=== PATIENT | female | born 1995 | race Caucasian/White ===

== ENCOUNTER 2018-11-24 14:25 | Inpatient (IN) ==
[2018-11-24 15:06] LABS: Apearance,Urine CLEAR (Clear); Bilirubin,Urine Negative (Negative); Blood, Urine Negative (Negative); Glucose,Urine (UA) Negative (Negative); Ketones,Urine Negative (Negative); Nitrite,Urine Negative (Negative); Protein,Urine Negative; RBC,Urine 2 /HPF (0-4); Squamous Epithelial Cell,Urine Occasional /HPF (0-10); Urine Color Straw (Yellow); Urine Specific Gravity 1.004 (1.001-1.035); Urine Urobilinogen < 2.0 EU/DL (0.2-1.0); WBC,Urine <1 /HPF (0-6)
[2018-11-24] MEDS: LACTATED RINGERS 1,000 ML IV SCH (15:50)
[2018-11-24] MEDS ORDERED: BUTORPHANOL 1 MG/ML VIAL IV PRN (17:27)
[2018-11-24 17:55] LABS: Basophils # 0.1 10*3/uL (0.0-0.2); Basophils % 0.4 % (0.0-0.8); Eosinophils % 0.2 % (0.00-10.9); Hematocrit 30.9 VOL% (35.7-47.0); Hemoglobin 9.2 GM/DL (12.0-16.0); Immature Granulocytes % 5.1 %; Immature Granulocytes Absolute 0.61 #; Lymphocytes # 2.2 10*3/uL (1.4-4.0); Lymphocytes % 18.2 % (21.3-54.2); Mean Corpuscular HGB Conc 29.8 GM/DL (32-36); Mean Corpuscular Volume 72.2 FL (87-102); Mean Platelet Volume 10.8 FL (9.6-12.0); Monocytes % 5.9 % (1.7-12.7); NRBC # 0.05 10*3/uL; Neutrophils % 70.2 % (38.7-73.9); Platelet Count 159 T/CUMM (130-400); Red Blood Count 4.28 MC/CUMM (3.8-5.5); Red Cell Distribution Width 16.3 % (9.3-17.3); White Blood Count 12.1 T/CUMM (4-12)
[2018-11-24 18:31] LABS: Band Neutrophils 1 % (0-10); Eosinophils 1 % (0-10); Hypochromasia Slight; Lymphocytes 15 % (20-55); Microcytosis 1+; Polychromasia 1+; Segmented Neutrophils 80 % (50-85); Total Cells Counted 100
[2018-11-24 18:32] LABS: Platelet Estimate Adequate
[2018-11-24] MEDS ORDERED: INFLUENZA VIRUS VACCINE 0.5 ML SYRINGE IM ONE (18:44)
[2018-11-24] MEDS: MEPERIDINE 25 MG/1 ML VIAL IV PRN (19:14)
[2018-11-24] MEDS: ONDANSETRON 4 MG/2 ML VIAL IV PRN (19:15)
[2018-11-25] MEDS: ONDANSETRON 4 MG/2 ML VIAL IV PRN ×2 (00:13→06:05)
[2018-11-25] MEDS: MEPERIDINE 25 MG/1 ML VIAL IV PRN ×2 (00:13→06:05)
[2018-11-25] MEDS: LACTATED RINGERS 1,000 ML IV SCH (01:58)
[2018-11-25] MEDS: OXYTOCIN/LR 20 UNIT/1,000 ML BAG IV SCH ×2 (01:58→14:46)
[2018-11-25] MEDS ORDERED: LIDOCAINE 1% 50 ML VIAL ONE (10:14)
[2018-11-25] MEDS ORDERED: miSOPROStoL 200 MCG TABLET ONE (10:15)
[2018-11-25 10:51] LABS: Cord Arterial Blood HCO3 20.4 MMOL/L
[2018-11-25 11:03] LABS: Cord Venous Blood PCO2 39.5 MMHG; Cord Venous Blood PO2 22.9
[2018-11-25 11:04] LABS: Cord Venous Blood HCO3 22.7 MMOL/L
[2018-11-25] MEDS ORDERED: WITCH HAZEL PADS 100/JAR TOP PRN (16:26)
[2018-11-25] MEDS ORDERED: HYDROCORTISONE 2.5% RECTAL CREAM 30 GM TUBE TOP PRN (16:26)
[2018-11-25] MEDS ORDERED: BISACODYL 10 MG SUPP RECTAL PRN (16:26)
[2018-11-25] MEDS ORDERED: oxyCODONE/ACETAMINOPHEN 5-325 MG TABLET PO PRN ×2 (16:26)
[2018-11-25] MEDS ORDERED: RHO(D) IMMUNE GLOBULIN 300 MCG SYRINGE IM ONE (16:26)
[2018-11-25] MEDS ORDERED: DIPH/TET/ACEL PERT BOOSTER VACCINE 0.5 ML VIAL IM ONE (16:26)
[2018-11-25] MEDS ORDERED: LANOLIN 50% CREAM 0.3 OZ TUBE TOP PRN (16:26)
[2018-11-25] MEDS ORDERED: MEASLES/MUMPS/RUBELLA VACCINE 0.5 ML VIAL SUBCUT ONE (16:26)
[2018-11-25] MEDS ORDERED: BENZOCAINE 20%/MENTHOL 0.5% SPRAY 56 GM CAN TOP PRN (16:26)
[2018-11-25] MEDS ORDERED: ACETAMINOPHEN 325 MG TABLET PO PRN (16:26)
[2018-11-25] MEDS: IBUPROFEN 800 MG TABLET PO PRN (16:33)
[2018-11-25] MEDS: DOCUSATE SODIUM 100 MG CAPSULE PO SCH (20:03)
[2018-11-26] MEDS: IBUPROFEN 800 MG TABLET PO PRN ×2 (00:28→14:56)
[2018-11-26 05:37] LABS: Basophils % 0.2 % (0.0-0.8); Eosinophils % 0.2 % (0.00-10.9); Hematocrit 24.9 VOL% (35.7-47.0); Hemoglobin 7.5 GM/DL (12.0-16.0); Immature Granulocytes % 4.5 %; Immature Granulocytes Absolute 0.59 #; Lymphocytes # 1.3 10*3/uL (1.4-4.0); Lymphocytes % 9.8 % (21.3-54.2); Mean Corpuscular HGB Conc 30.1 GM/DL (32-36); Mean Corpuscular Volume 72.2 FL (87-102); Mean Platelet Volume 12.4 FL (9.6-12.0); Monocytes % 6.4 % (1.7-12.7); NRBC # 0.02 10*3/uL; Neutrophils % 78.9 % (38.7-73.9); Platelet Count 148 T/CUMM (130-400); Red Blood Count 3.45 MC/CUMM (3.8-5.5); Red Cell Distribution Width 16.7 % (9.3-17.3)
[2018-11-26 05:59] LABS: Band Neutrophils 2 % (0-10); Hypochromasia 1+; Lymphocytes 10 % (20-55); Platelet Estimate Adequate; Segmented Neutrophils 87 % (50-85); Total Cells Counted 100
[2018-11-26 06:00] LABS: Microcytosis 1+
[2018-11-26] MEDS ORDERED: FERROUS SULFATE 325 MG TABLET PO SCH (09:00)
[2018-11-26] MEDS: FERROUS SULFATE 325 MG TABLET PO SCH ×3 (09:32→20:20)
[2018-11-26] MEDS: DOCUSATE SODIUM 100 MG CAPSULE PO SCH ×2 (09:32→20:20)
[2018-11-27] MEDS: IBUPROFEN 800 MG TABLET PO PRN (00:31)
[2018-11-27 07:32] VITALS: BP 138/89
[2018-11-27] MEDS: DOCUSATE SODIUM 100 MG CAPSULE PO SCH (08:40)
[2018-11-27] MEDS: FERROUS SULFATE 325 MG TABLET PO SCH (08:40)
[2018-11-27] MEDS ORDERED: INFLUENZA VIRUS VACCINE 0.5 ML SYRINGE IM ONE (09:37)
== END 2018-11-27 12:25 | disposition home or self-care (01) | DRG 560 ==
LOC: N.LDOUT 14:25 → N.LD 14:28 → N.OB 11-25 16:15
PROVIDERS: ADMIT Obstetrics & Gynecology; ATTEND Obstetrics & Gynecology